=== PATIENT | male | born 1940 | race African-American/Black ===

== ENCOUNTER 2017-12-08 05:00 | Inpatient (IN) | payer MEDICARE, MEDICAID ==
[2017-12-08] VITALS (8 sets, daily range): BP systolic 101–125; BP diastolic 58–74
[~2017-12-08] VITALS: Ht 188 cm; Wt 83.9 kg
[2017-12-08] MEDS ORDERED: LOTENSIN HCT 21 EACH PO (05:16)
[2017-12-08] MEDS ORDERED: ALUMINUM CHLORIDE (05:16)
[2017-12-08] MEDS ORDERED: FUROSEMIDE40 MG PO (05:17)
[2017-12-08] MEDS ORDERED: FOLIC ACID0.8 MG PO (05:17)
[2017-12-08] MEDS ORDERED: FLUTICASONE PRO16 GM NASAL (05:17)
[2017-12-08] MEDS ORDERED: POTASSIUM CHLO10 ME1 PO (05:18)
[2017-12-08] MEDS ORDERED: HYDROCODONE-APA1 TAB PO (05:18)
[2017-12-08] MEDS ORDERED: TRIDERM90 GM TP (05:19)
[2017-12-08] MEDS ORDERED: ZOLOFT50 MG PO (05:19)
[2017-12-08] MEDS ORDERED: ULORIC40 MG PO (05:19)
[2017-12-08] MEDS ORDERED: XARELTO20 MG PO (05:20)
[2017-12-08] MEDS ORDERED: AMBIEN10 MG PO (05:20)
[2017-12-08 08:20] LABS: BASOPHILS 0.2 % (0-2); EOSINOPHILS 1.8 % (0-7); HEMATOCRIT 29.7 % (42.0-54.0); HEMOGLOBIN 9.9 g/dL (13.5-17.5); IMMATURE GRANULOCYTES 0.5 % (0-5); LYMPHOCYTES 13.6 % (15-50); MCH 29.6 pg (26.0-34.0); MCHC 33.3 g/dL (31.0-37.0); MCV 88.9 fL (80.0-100.0); MEAN PLATELET VOLUME 10.4 fL (7.4-10.4); MONOCYTES 7.7 % (2-11); NEUTROPHILS 76.2 % (40-80); PLATELET COUNT 241 10x3/uL (130-400); RBC 3.34 10x6/uL (4.20-6.10); RDW 14.5 % (11.5-14.5); WBC 12.9 10x3/uL (4.8-10.8)
[2017-12-08 08:42] LABS: ALBUMIN 2.8 g/dL (3.4-5.0); ANION GAP 13.4 mmol/L (8-16); BILIRUBIN - TOTAL 0.19 mg/dL (0.2-1.3); CALCIUM 8.6 mg/dL (8.5-10.1); CARBON DIOXIDE 27.7 mmol/L (21.0-32.0); CREATININE - SERUM 1.7 mg/dL (0.6-1.3); POTASSIUM - SERUM 3.1 mmol/L (3.5-5.1); PROTEIN - SERUM 6.8 g/dL (6.4-8.2)
[2017-12-09] VITALS: BP 114/69
[2017-12-09 05:15] LABS: BASOPHILS 0.1 % (0-2); EOSINOPHILS 0.8 % (0-7); HEMOGLOBIN 9.9 g/dL (13.5-17.5); IMMATURE GRANULOCYTES 0.4 % (0-5); LYMPHOCYTES 10.1 % (15-50); MCH 29.3 pg (26.0-34.0); MCV 88.8 fL (80.0-100.0); MEAN PLATELET VOLUME 10.5 fL (7.4-10.4); MONOCYTES 7.5 % (2-11); NEUTROPHILS 81.1 % (40-80); PLATELET COUNT 264 10x3/uL (130-400); RBC 3.38 10x6/uL (4.20-6.10); RDW 14.3 % (11.5-14.5); WBC 14.1 10x3/uL (4.8-10.8)
[2017-12-09 05:43] VITALS: BP 120/70
[2017-12-09 05:46] LABS: ALBUMIN 2.7 g/dL (3.4-5.0); BILIRUBIN - TOTAL 0.52 mg/dL (0.2-1.3); CALCIUM 8.7 mg/dL (8.5-10.1); CARBON DIOXIDE 28.8 mmol/L (21.0-32.0); CREATININE - SERUM 1.5 mg/dL (0.6-1.3); PROTEIN - SERUM 6.6 g/dL (6.4-8.2)
[2017-12-09 05:47] LABS: ANION GAP 12.1 mmol/L (8-16); POTASSIUM - SERUM 3.9 mmol/L (3.5-5.1)
[2017-12-09 08:13] VITALS: BP 117/68
[2017-12-09 11:32] VITALS: BP 91/56
[2017-12-09 14:01] VITALS: Ht 188 cm; Wt 83.9 kg
[2017-12-09 15:47] VITALS: BP 106/60
[2017-12-09 19:56] VITALS: BP 102/44
[2017-12-10 02:32] VITALS: BP 120/63
[2017-12-10 04:45] VITALS: BP 155/90
[2017-12-10 06:20] LABS: BASOPHILS 0.2 % (0-2); EOSINOPHILS 1.5 % (0-7); HEMATOCRIT 28.5 % (42.0-54.0); HEMOGLOBIN 9.4 g/dL (13.5-17.5); IMMATURE GRANULOCYTES 0.3 % (0-5); LYMPHOCYTES 9.2 % (15-50); MCH 29.5 pg (26.0-34.0); MCV 89.3 fL (80.0-100.0); MEAN PLATELET VOLUME 10.2 fL (7.4-10.4); MONOCYTES 7.3 % (2-11); NEUTROPHILS 81.5 % (40-80); PLATELET COUNT 250 10x3/uL (130-400); RBC 3.19 10x6/uL (4.20-6.10); RDW 14.3 % (11.5-14.5); WBC 10.9 10x3/uL (4.8-10.8)
[2017-12-10 06:47] LABS: ALBUMIN 2.3 g/dL (3.4-5.0); ANION GAP 9.2 mmol/L (8-16); BILIRUBIN - TOTAL 0.53 mg/dL (0.2-1.3); CALCIUM 8.5 mg/dL (8.5-10.1); CARBON DIOXIDE 28.6 mmol/L (21.0-32.0); CREATININE - SERUM 1.4 mg/dL (0.6-1.3); POTASSIUM - SERUM 3.8 mmol/L (3.5-5.1); PROTEIN - SERUM 5.9 g/dL (6.4-8.2)
[2017-12-10 12:22] VITALS: BP 100/62
[2017-12-10 16:16] VITALS: BP 96/56
[2017-12-10 19:35] VITALS: BP 92/50
[2017-12-10 23:17] VITALS: BP 90/49
[2017-12-11 04:20] VITALS: BP 93/47
[2017-12-11 06:09] LABS: BASOPHILS 0.2 % (0-2); EOSINOPHILS 1.8 % (0-7); HEMATOCRIT 28.7 % (42.0-54.0); HEMOGLOBIN 9.6 g/dL (13.5-17.5); IMMATURE GRANULOCYTES 0.3 % (0-5); MCH 30.1 pg (26.0-34.0); MCHC 33.4 g/dL (31.0-37.0); MEAN PLATELET VOLUME 10.5 fL (7.4-10.4); MONOCYTES 8.1 % (2-11); NEUTROPHILS 81.6 % (40-80); PLATELET COUNT 274 10x3/uL (130-400); RBC 3.19 10x6/uL (4.20-6.10); RDW 14.5 % (11.5-14.5); WBC 9.9 10x3/uL (4.8-10.8)
[2017-12-11 06:31] LABS: ALBUMIN 2.4 g/dL (3.4-5.0); ANION GAP 10.1 mmol/L (8-16); BILIRUBIN - TOTAL 0.27 mg/dL (0.2-1.3); CALCIUM 8.2 mg/dL (8.5-10.1); CARBON DIOXIDE 30.4 mmol/L (21.0-32.0); CREATININE - SERUM 1.4 mg/dL (0.6-1.3); PROTEIN - SERUM 5.5 g/dL (6.4-8.2)
[2017-12-11 06:37] LABS: POTASSIUM - SERUM 4.5 mmol/L (3.5-5.1)
[2017-12-11 08:46] VITALS: BP 89/56
[2017-12-11 12:14] VITALS: BP 96/60
[2017-12-11 16:02] VITALS: BP 104/66
[2017-12-11 19:44] LABS: % SATURATION 8 % (15-55); IRON 14 ug/dl (35-150); TOTAL IRON BIND CAPACITY 171 ug/dl (260-445); UNSAT IRON BIND CAPACITY 157 ug/dl (150-375)
[2017-12-11 19:53] LABS: FERRITIN 153 ng/mL (3-244); LDH 170 U/L (85-227)
[2017-12-11 21:06] VITALS: BP 129/60
[2017-12-12 04:34] VITALS: BP 97/57
[2017-12-12 06:22] LABS: BASOPHILS 0.2 % (0-2); EOSINOPHILS 2.4 % (0-7); HEMATOCRIT 29.1 % (42.0-54.0); HEMOGLOBIN 9.6 g/dL (13.5-17.5); IMMATURE GRANULOCYTES 0.2 % (0-5); LYMPHOCYTES 11.5 % (15-50); MCH 29.6 pg (26.0-34.0); MCV 89.8 fL (80.0-100.0); MEAN PLATELET VOLUME 10.8 fL (7.4-10.4); MONOCYTES 8.7 % (2-11); PLATELET COUNT 296 10x3/uL (130-400); RBC 3.24 10x6/uL (4.20-6.10); RDW 14.4 % (11.5-14.5); WBC 10.5 10x3/uL (4.8-10.8)
[2017-12-12 07:02] LABS: ALBUMIN 2.4 g/dL (3.4-5.0); ANION GAP 10.8 mmol/L (8-16); BILIRUBIN - TOTAL 0.14 mg/dL (0.2-1.3); CALCIUM 8.1 mg/dL (8.5-10.1); CARBON DIOXIDE 28.5 mmol/L (21.0-32.0); CREATININE - SERUM 1.3 mg/dL (0.6-1.3); POTASSIUM - SERUM 4.3 mmol/L (3.5-5.1); PROTEIN - SERUM 6.2 g/dL (6.4-8.2)
[2017-12-12 08:20] VITALS: BP 102/67
[2017-12-12 13:24] VITALS: BP 137/65
[2017-12-12 15:56] VITALS: BP 99/54
[2017-12-13 04:42] LABS: BASOPHILS 0.2 % (0-2); EOSINOPHILS 1.8 % (0-7); HEMATOCRIT 29.2 % (42.0-54.0); HEMOGLOBIN 9.8 g/dL (13.5-17.5); IMMATURE GRANULOCYTES 0.4 % (0-5); LYMPHOCYTES 9.9 % (15-50); MCHC 33.6 g/dL (31.0-37.0); MCV 89.3 fL (80.0-100.0); MEAN PLATELET VOLUME 9.9 fL (7.4-10.4); MONOCYTES 7.8 % (2-11); NEUTROPHILS 79.9 % (40-80); PLATELET COUNT 259 10x3/uL (130-400); RBC 3.27 10x6/uL (4.20-6.10); RDW 14.1 % (11.5-14.5); WBC 10.8 10x3/uL (4.8-10.8)
[2017-12-13 05:06] LABS: ALBUMIN 2.3 g/dL (3.4-5.0); ANION GAP 10.3 mmol/L (8-16); BILIRUBIN - TOTAL 0.33 mg/dL (0.2-1.3); CALCIUM 8.6 mg/dL (8.5-10.1); CARBON DIOXIDE 27.9 mmol/L (21.0-32.0); CREATININE - SERUM 1.5 mg/dL (0.6-1.3); POTASSIUM - SERUM 4.2 mmol/L (3.5-5.1); PROTEIN - SERUM 6.1 g/dL (6.4-8.2)
[2017-12-13 08:17] LABS: FOLATE (FOLIC ACID) - SERUM 10.5 ng/mL (>3.0)
[2017-12-13 08:33] VITALS: BP 108/76
[2017-12-13 12:01] VITALS: BP 104/64
[2017-12-13 16:08] VITALS: BP 101/60
[2017-12-13 20:00] VITALS: BP 100/55
[2017-12-14] VITALS: BP 93/45
[2017-12-14 04:00] VITALS: BP 87/44
[2017-12-14 08:37] VITALS: BP 112/56
[2017-12-14 16:25] VITALS: BP 81/46
[2017-12-14 20:00] VITALS: BP 90/55
[2017-12-15] VITALS: BP 103/76
[2017-12-15 04:00] VITALS: BP 99/52
[2017-12-15 08:58] VITALS: BP 106/58
[2017-12-15 16:06] VITALS: BP 152/77
[2017-12-15 20:00] VITALS: BP 93/51
[2017-12-16] VITALS: BP 109/58
[2017-12-16 04:00] VITALS: BP 98/62
[2017-12-16 10:22] VITALS: BP 152/71
[2017-12-16 16:14] VITALS: BP 105/50
[2017-12-16 22:54] VITALS: BP 116/67
[2017-12-17 01:26] VITALS: BP 120/64
[2017-12-17 05:00] VITALS: BP 125/71
[2017-12-17 08:38] VITALS: BP 111/63
[2017-12-17 12:09] VITALS: BP 142/51
[2017-12-17 15:23] VITALS: BP 112/65
[2017-12-17 21:07] VITALS: BP 100/53
[2017-12-18 05:40] VITALS: BP 114/68
[2017-12-18 08:05] VITALS: BP 102/72
[2017-12-18 10:24] LABS: BASOPHILS 0.3 % (0-2); EOSINOPHILS 2.4 % (0-7); HEMOGLOBIN 10.5 g/dL (13.5-17.5); IMMATURE GRANULOCYTES 0.2 % (0-5); LYMPHOCYTES 11.6 % (15-50); MCH 29.6 pg (26.0-34.0); MCHC 32.8 g/dL (31.0-37.0); MCV 90.1 fL (80.0-100.0); MEAN PLATELET VOLUME 10.8 fL (7.4-10.4); NEUTROPHILS 77.5 % (40-80); RBC 3.55 10x6/uL (4.20-6.10); RDW 14.1 % (11.5-14.5); WBC 10.9 10x3/uL (4.8-10.8)
[2017-12-18] MEDS ORDERED: ZOSYN 3.3753.375 G1 IV (10:31)
[2017-12-18] MEDS ORDERED: FLORAJEN3 CAPS460 MG PO (10:32)
[2017-12-18] MEDS ORDERED: HCTZ25 MG PO (10:32)
[2017-12-18] MEDS ORDERED: SALINE FLUSH10 ML IV (10:33)
[2017-12-18 10:38] LABS: ANION GAP 8.2 mmol/L (8-16); BILIRUBIN - TOTAL 0.17 mg/dL (0.2-1.3); CALCIUM 9.3 mg/dL (8.5-10.1); CARBON DIOXIDE 35.5 mmol/L (21.0-32.0); CREATININE - SERUM 1.7 mg/dL (0.6-1.3); POTASSIUM - SERUM 3.7 mmol/L (3.5-5.1); PROTEIN - SERUM 7.4 g/dL (6.4-8.2)
[2017-12-18 10:55] LABS: PLATELET COUNT 314 10x3/uL (130-400)
[2017-12-18 12:11] VITALS: BP 110/68
[2017-12-18 16:01] VITALS: BP 120/73
== END 2017-12-18 18:49 | disposition home health service (06) | DRG 603 ==
LOC: D.ER 05:00 → D.EDHOLD 08:52 → D.MS 08:52
PROVIDERS: Family Medicine; Internal Medicine Nephrology
PROC: 05HC33Z Insertion of Infusion Device into Left Basilic Vein, Percutaneous Approach (ICD-10-PCS; principal; 2017-12-18)
PROC: B54NZZA Ultrasonography of Left Upper Extremity Veins, Guidance (ICD-10-PCS; 2017-12-18)
DX: L03.116 Cellulitis of left lower limb (principal); N17.9 Acute kidney failure, unspecified; L97.921 Non-pressure chronic ulcer of unspecified part of left lower leg limited to breakdown of skin; L97.911 Non-pressure chronic ulcer of unspecified part of right lower leg limited to breakdown of skin; L03.115 Cellulitis of right lower limb; B96.5 Pseudomonas (aeruginosa) (mallei) (pseudomallei) as the cause of diseases classified elsewhere; I89.0 Lymphedema, not elsewhere classified; I10 Essential (primary) hypertension; Z86.718 Personal history of other venous thrombosis and embolism; D64.9 Anemia, unspecified; I87.2 Venous insufficiency (chronic) (peripheral)

== ENCOUNTER → 2018-10-29 09:55 | Outpatient (CLI) | payer MEDICARE, MEDICAID ==
[2017-12-09 14:01] VITALS: BMI 23.7
--- NOTE | ~2018-10-29 | ST ---
PATIENT:DOLORES DAVID MEDICAL RECORD: [id number] SEX: M LOCATION:[facility] ORDER #: ADMISSION DATE: 10/29/18 AGE OF PATIENT: 78 REFERRING PHYSICIAN: INTERPRETING PHYSICIAN: RICHARD GRIMES MD DATE OF SERVICE: 10/29/2018 PROCEDURE: Nuclear stress test. INDICATION: Angina, abnormal ECG, hypertension. PROCEDURE DETAILS: She was exercised on standard Lexiscan protocol with 29 mCi of sestamibi injected at peak stress, 10 mCi used previously for rest images. FINDINGS: Gated SPECT reveals preserved ejection fraction at 61% with good wall motion and thickening and brightening throughout all segments. SPECT imaging Cardiolite was used as myocardial fusion agent. There is homogeneous uptake throughout all segments at rest and stress with no evidence of inducible ischemia or previous infarction. OVERALL IMPRESSION: 1. This is a normal nuclear stress test with no evidence of inducible ischemia or previous infarction. 2. Gated SPECT reveals a preserved ejection fraction at 61%. In this patient with ongoing symptomatology, the current scan does not suggest the presence of hemodynamically significant coronary artery disease. Evaluate noncardiac etiology of chest pain. TRANSINT:[id number] Voice Confirmation ID: [id number] DOCUMENT ID: [id number] RICHARD GRIMES MD CC: LEDA SAUCEDO MD [id number] DICTATION DATE: 10/30/18 1139 CLINICAL PSYCHIATRIST: 10/31/18 0110 DEP CLI 10/29/18 [facility] [address] [place] [address]
[~2018-10-29 09:55] MED LIST: ALUMINUM CHLORIDE; AMBIEN10 MG PO; FLORAJEN3 CAPS460 MG PO; FLUTICASONE PRO16 GM NASAL; FOLIC ACID0.8 MG PO; FUROSEMIDE40 MG PO; HCTZ25 MG PO; HYDROCODONE-APA1 TAB PO; LOTENSIN HCT 21 EACH PO; POTASSIUM CHLO10 ME1 PO; SALINE FLUSH10 ML IV; TRIDERM90 GM TP; ULORIC40 MG PO; XARELTO20 MG PO; ZOLOFT50 MG PO; ZOSYN 3.3753.375 G1 IV
--- NOTE | 2018-10-31 12:55 | EC ---
PATIENT:DOLORES DAVID DATE OF SERVICE: 10/29/18 SEX: M MEDICAL RECORD: [id number] DATE OF : 44 LOCATION:[facility] AGE OF PATIENT: 78 ADMISSION DATE: 10/29/18 REFERRING PHYSICIAN: INTERPRETING PHYSICIAN: RAUL MARTINEZ MD ECHOCARDIOGRAM REPORT ECHO CHARGES 4 ECHO COMPLETE Date: 10/29/18 CLINICAL DIAGNOSIS: DYSPNEA, CHEST PAIN ECHOCARDIOGRAPHIC MEASUREMENTS (adult normal given) AC root (d.<3.7cm) 3.5 cm LV Septum d (<1.2 cm> 1.4 cm Valve Excursion 1.5 cm LV Septum (systole) 1.8 cm Left Atria (s.<4.0cm> 3.9 cm LVPW d(<1.2cm) 1.5 cm RV (d.<2.3cm) 3.1 cm LVPW (sytole) 1.9 cm LV diastole(<5.6CM) 5.3 cm MV E-F(>70mm/sec) cm LV systole 2.8 cm LVOT Diameter 1.9 cm MV exc.(>10mm) 1.3 cm Est.ejection fraction (50-75%) % DOPPLER: LVIT cm/sec A 107 cm/sec E 77.0 cm/sec LA cm/sec RVSP 25 mmHg LVOT 161 cm/sec AOP1/2T m/s Asc. Ao 178 cm/sec RVOT 90 cm/sec RA cm/sec PA 160 cm/sec AV Gradient Peak 12.60mmHg AV Mean 6.50 mmHg AV Area 3.2 cm MV Gradient Peak 4.95 mmHg MV Mean 1.57 mmHg MV Area cm COMMENTS: Wood Type Finisher: 2 JOSE DE JESUS MCKINLEY Child Specialist: 3 Dr. Blake TAPE# PACS Pericardial Effusion N DATE OF SERVICE: Adequate 2D, color flow, spectral Doppler, and M-Mode. Mild LVH. LV internal dimensions are normal. Wall motion is normal. EF is greater than or equal to 55%. Aortic valve is tricuspid. No evidence of stenosis by Doppler interrogation. Left atrium is normal at 3.9 cm. Mitral valve shows no prolapse. Trace MR. Right-sided chambers grossly normal. Trace TR. ECHOCARDIOGRAM REPORT [id number] DOLORES DAVID TRANSINT:[id number] Voice Confirmation ID: [id number] DOCUMENT ID: [id number] RAUL MARTINEZ MD at 1255 CC: [id number] DICTATION DATE: 10/30/18 1301 POLE CUTTER: 10/30/18 1400 DEP CLI 10/29/18 [facility] [id number] [place] [address]
== END | disposition home or self-care (01) ==
LOC: D.HCCARDIO 09:55
PROVIDERS: ATTEND Internal Medicine Interventional Cardiology
DX: R06.00 Dyspnea, unspecified (principal); I20.9 Angina pectoris, unspecified